=== PATIENT | female | born 1975 | race Caucasian/White ===

== ENCOUNTER 2024-12-25 12:56 | Emergency (ER) | payer OTHER ==
[~2024-12-25] VITALS: Ht 162.6 cm; Wt 67.6 kg
[2024-12-25 13:18] VITALS: TEMP 98.8
[2024-12-25] MEDS: IV NS 0.9% 1,000 ML BAG IV ONE (13:35)
[2024-12-25] MEDS: ACETAMINOPHEN ES 500 MG TABLET PO ONE (13:40)
[2024-12-25] MEDS: ONDANSETRON HCL/PF 4 MG/2 ML VIAL IVP ONE (13:40)
[2024-12-25 13:41] LABS: BASOPHILS % (AUTO) 0.2 % (0.0-2.0); EOSINOPHILS # (AUTO) 0.1 K/uL (0.0-0.7); EOSINOPHILS % (AUTO) 0.8 % (0.0-6.0); HEMATOCRIT 46 % (33-45); HEMOGLOBIN 15.8 g/dL (11.5-14.8); LYMPHOCYTES # (AUTO) 1.2 K/uL (0.8-4.8); LYMPHOCYTES % (AUTO) 11.3 % (20.0-44.0); MEAN CORPUSCULAR HEMOGLOBIN 31 PG (26.0-33.0); MEAN CORPUSCULAR HGB CONC 34 g/dl (31.0-36.0); MEAN CORPUSCULAR VOLUME 92 fL (82-100); MONOCYTES # (AUTO) 0.7 K/uL (0.1-1.30); MONOCYTES % (AUTO) 6.6 % (2.0-12.0); NEUTROPHILS # (AUTO) 8.4 K/uL (1.8-8.9); NEUTROPHILS % (AUTO) 81.1 % (43.0-81.0); PLATELET COUNT (AUTO) 302 K/uL (150-450); RED BLOOD CELL COUNT(AUTO) 5.05 MIL/uL (4.0-5.2); RED CELL DISTRIBUTION WIDTH 13.2 % (11.5-15.0); WHITE BLOOD COUNT (AUTO) 10.3 K/uL (4.3-11.0)
[2024-12-25] MEDS: FAMOTIDINE/PF INJ 20 MG/2 ML VIAL IV ONE (13:42)
[2024-12-25] MEDS ORDERED: ONDANSETRON HCL/PF 4 MG/2 ML VIAL ONE (13:42)
[2024-12-25] MEDS ORDERED: FAMOTIDINE/PF INJ 20 MG/2 ML VIAL IV ONE (13:42)
[2024-12-25] MEDS ORDERED: ACETAMINOPHEN ES 500 MG TABLET ONE (13:42)
[2024-12-25 13:51] LABS: CALCIUM, SERUM 9.3 mg/dL (8.5-10.1); POTASSIUM 3.6 mmol/L (3.5-5.1)
[2024-12-25 13:57] LABS: ALBUMIN 3.6 g/dL (3.4-5.0); BILIRUBIN,DIRECT 0.1 mg/dL (0.0-0.2); BILIRUBIN,TOTAL 0.4 mg/dL (0.2-1.0); TOTAL PROTEIN, SERUM 8.5 g/dL (6.4-8.2)
[2024-12-25] MEDS ORDERED: ONDA4TAB11 PO (14:10)
[2024-12-25 15:10] VITALS: BP 110/75; O2SAT 99
== END 2024-12-25 15:09 | disposition home or self-care (01) ==
LOC: ER 13:01
DX: R10.84 Generalized abdominal pain (principal); R11.2 Nausea with vomiting, unspecified; R19.7 Diarrhea, unspecified; R10.2 Pelvic and perineal pain
CPT/HCPCS: 99284; 96374; 96361; 96375; 85025; 80048; 83690; 80076; 36415; 84702; J1308; J2405; J7030

== ENCOUNTER 2025-06-17 02:11 | Emergency (ER) | payer OTHER ==
[~2025-06-17] VITALS: Ht 162.6 cm; Wt 59.0 kg
[~2025-06-17 02:11] MED LIST: ONDA4TAB11 PO
[2025-06-17] MEDS ORDERED: ONDANSETRON HCL/PF 4 MG/2 ML VIAL ONE (02:39)
[2025-06-17] MEDS ORDERED: DICYCLOMINE HCL 10 MG CAPSULE PO ONE (02:39)
[2025-06-17] MEDS ORDERED: ONDA4TAB11 PO (02:43)
[2025-06-17] MEDS ORDERED: DICY10CA37 PO (02:43)
[2025-06-17] MEDS: IV NS 0.9% 1,000 ML BAG IV ONE (02:50)
[2025-06-17] MEDS: DICYCLOMINE HCL 10 MG CAPSULE PO ONE (02:51)
[2025-06-17] MEDS: ONDANSETRON HCL/PF 4 MG/2 ML VIAL IVP ONE (02:51)
[2025-06-17 02:56] LABS: PLATELET COUNT (AUTO) 280 K/uL (150-450); RED BLOOD CELL COUNT(AUTO) 4.47 MIL/uL (4.0-5.2); RED CELL DISTRIBUTION WIDTH 13.6 % (11.5-15.0); WHITE BLOOD COUNT (AUTO) 6.8 K/uL (4.3-11.0)
[2025-06-17 02:57] LABS: PREGNANCY TEST URINE QUAL NEGATIVE (NEGATIVE)
[2025-06-17 03:02] LABS: CALCIUM, SERUM 8.3 mg/dL (8.5-10.1); CREATININE 0.9 mg/dL (0.6-1.3); SODIUM SERUM 143.0 mmol/L (136-145); UREA NITROGEN, BLOOD 16.0 mg/dL (7-18)
[2025-06-17] MEDS ORDERED: METOCLOPRAMIDE HCL 10 MG/2 ML VIAL ONE (03:24)
[2025-06-17] MEDS ORDERED: POTASSIUM CHLORIDE 20 MEQ TAB.PRT.SR PO ONE (03:24)
[2025-06-17] MEDS ORDERED: KETOROLAC TROMETHAMINE 15 MG/ML VIAL ONE (03:26)
[2025-06-17] MEDS: KETOROLAC TROMETHAMINE 15 MG/ML VIAL IV ONE (03:31)
[2025-06-17] MEDS: METOCLOPRAMIDE HCL 10 MG/2 ML VIAL IV ONE (03:31)
[2025-06-17] MEDS: POTASSIUM CHLORIDE 20 MEQ TAB.PRT.SR PO ONE (04:01)
[2025-06-17 04:02] VITALS: BP 99/69; TEMP 98.2; O2SAT 100
== END 2025-06-17 04:03 | disposition home or self-care (01) ==
LOC: ER 02:16
DX: R10.84 Generalized abdominal pain (principal); R19.7 Diarrhea, unspecified; R11.2 Nausea with vomiting, unspecified; Z88.1 Allergy status to other antibiotic agents; Z88.2 Allergy status to sulfonamides; Z60.2 Problems related to living alone
CPT/HCPCS: 99284; 96374; 96375; 96361; 85025; 80048; 83690; 83735; 84703; 36415; J1885; J2765; J2405; J7030